=== PATIENT | female | born 1945 | race Two or more races ===

== ENCOUNTER 2016-11-07 01:25 | Inpatient (IN) | payer MEDICARE, OTHER ==
[~2016-11-07] VITALS: Ht 144.8 cm; Wt 39.0 kg
--- NOTE | 2016-11-07 01:30 | NUR ---
PT [facility] FROM [facility], PLACED ON 5150 HOLD FOR AGGRESIVE BEHAVIOR TO STAFF WITH THREATS. PT DENIES HI/ SI AT THIS TIME. PT AOX4 RR EVEN AND UNLABORED. NO SOB NOTED. NAD NOTED. NO NVD AT THIS TIME. PT NOT DIAPHORETIC. PT PLACED ON MONITOR WAITING FOR MD MICHELLE. PT NOTED CALM AND COMPLIANT.
--- NOTE | 2016-11-07 01:36 | NUR ---
URINE COLLECTED. LAB AT BEDSIDE FOR BLOOD DRAW
[2016-11-07 01:49] LABS: BASOPHILS % (AUTO) 0.3 % (0.0-2.0); EOSINOPHILS # (AUTO) 0.2 /CMM (0.0-0.7); EOSINOPHILS % (AUTO) 3.2 % (0.0-6.0); HEMATOCRIT 40 % (33-45); HEMOGLOBIN 12.8 g/dL (11.5-14.8); LYMPHOCYTES # (AUTO) 1.3 /CMM (0.8-4.8); LYMPHOCYTES % (AUTO) 20.4 % (20.0-44.0); MEAN CORPUSCULAR HEMOGLOBIN 26 PG (26.0-33.0); MEAN CORPUSCULAR HGB CONC 32 g/dl (31.0-36.0); MEAN CORPUSCULAR VOLUME 81 fL (82-100); MONOCYTES # (AUTO) 0.5 /CMM (0.1-1.30); MONOCYTES % (AUTO) 7.5 % (2.0-12.0); NEUTROPHILS # (AUTO) 4.5 /CMM (1.8-8.9); NEUTROPHILS % (AUTO) 68.6 % (43.0-81.0); PLATELET COUNT (AUTO) 220 /CMM (150-450); RDW COEFFICIENT OF VARIATION 15.1 (11.5-15.0); RED BLOOD CELL COUNT(AUTO) 4.85 MIL/uL (4.0-5.2); WHITE BLOOD COUNT (AUTO) 6.5 K/uL (4.3-11.0)
[2016-11-07 01:57] LABS: BILIRUBIN,URINE NEGATIVE (NEGATIVE); BLOOD, URINE NEGATIVE Ery/uL (NEGATIVE); COLOR,URINE YELLOW (YELLOW); KETONES,URINE NEGATIVE (NEGATIVE); LEUKOCYTE ESTERASE ,URINE NEGATIVE (NEGATIVE); NITRITE, URINE NEGATIVE (NEGATIVE); PROTEIN,URINE NEGATIVE (NEGATIVE); UGLUCOSE NEGATIVE (NEGATIVE); UROBILINOGEN,URINE 0.2 EU/dL (0.2)
[2016-11-07 01:58] LABS: CANNABINOID, URINE NEGATIVE (NEGATIVE); PHENCYCLIDINE SCREEN,URINE NEGATIVE (NEGATIVE)
[2016-11-07 01:59] LABS: CALCIUM, SERUM 8.9 mg/dL (8.5-10.1); CARBON DIOXIDE 31 mmol/L (21-32); CHLORIDE 108 mmol/L (98-107); CREATININE 0.8 mg/dL (0.6-1.3); GLUCOSE 82 mg/dL (74-106); POTASSIUM 4.1 mmol/L (3.5-5.1); SODIUM SERUM 143 mmol/L (136-145); UREA NITROGEN, BLOOD 22 mg/dL (7-18)
[2016-11-07 02:01] LABS: APPEARANCE,URINE CLEAR (CLEAR)
[2016-11-07 02:04] LABS: ALANINE AMINOTRANSFERASE 25 U/L (12-78); ALBUMIN 3.6 g/dL (3.4-5.0); ALCOHOL, BLOOD < 3 mg/dL (0-0); ALKALINE PHOSPHATASE 86 U/L (46-116); ASPARTATE AMINOTRANSFERASE 20 U/L (15-37); BILIRUBIN,TOTAL 0.2 mg/dL (0.2-1.0); TOTAL PROTEIN, SERUM 7.3 g/dL (6.4-8.2)
[2016-11-07 02:05] LABS: ACETAMINOPHEN 0 ug/ml (10-30); SALICYLATE 1.3 mg/dL (2.8-20.0)
--- NOTE | 2016-11-07 02:39 | NUR ---
PT TRANSFERED VIA [facility] TO [facility].
[2016-11-07 03:00] VITALS: BP 147/76
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
[2016-11-07] MEDS ORDERED: MAG HYDROX/AL HYDROX/SIMETH 30 ML UDC PO PRN (03:30)
[2016-11-07] MEDS ORDERED: ACETAMINOPHEN 325 MG TABLET PO PRN (03:30)
[2016-11-07] MEDS ORDERED: LORAZEPAM 0.5 MG TABLET PO PRN (03:30)
[2016-11-07] MEDS ORDERED: MAGNESIUM HYDROXIDE 30 ML UDC PO PRN (03:30)
[2016-11-07] MEDS ORDERED: AMLO5TAB2 PO (04:48)
[2016-11-07] MEDS ORDERED: IBUP-1481 PO (04:49)
--- NOTE | 2016-11-07 06:37 | NUR ---
GPS RN NOTE, PATIENT NEEDS A MEDICATION RECONCILIATION. PAGED [facility] AND INFORMED DR SORENSEN OF MY FINDINGS. DR SORENSEN STATED THAT SHE WOULD LOOK INTO IT. WILL CONTINUE TO MONITOR THIS PATIENT.
[2016-11-07 07:37] LABS: CREATININE 0.7 mg/dL (0.6-1.3)
[2016-11-07 08:00] VITALS: BP 143/77
--- NOTE | 2016-11-07 09:30 | NUR ---
WOUND CARE CONSULT: PATIENT SEEN AND SKIN ASSESSMENT DONE. PATIENT ALERT, AMBULATORY, INDEPENDENT WITH BED MOBILITY, CONTINENT, CARRI 22. SEE TODAY'S SKIN ASSESSMENT IN PCS ALONG WITH RECOMMENDATIONS DISCUSSED WITH NURSING STAFF. RECOMMEND MOISTURE PROTECTION WITH Z GUARD PRN ORDERED. MD IN AGREEMENT WITH PLAN OF CARE. Addendum: 11/07/16 at 0932 by SHIRLEY BREWER WNDNU Amended: Links added.
[2016-11-07] MEDS ORDERED: Z GUARD REMEDY 2 OZ OINT TP PRN (10:00)
[2016-11-07] MEDS ORDERED: IBUPROFEN 400 MG TABLET PO PRN (11:00)
[2016-11-07] MEDS: NEOMY SULF/BACITRAC ZN/POLY 15 GM TUBE TP SCH (11:01)
[2016-11-07] MEDS: DIVALPROEX SODIUM 250 MG TABLET.DR PO SCH ×2 (15:30→21:56)
[2016-11-07 16:00] VITALS: BP 119/75
[2016-11-07] MEDS: QUETIAPINE FUMARATE 25 MG TABLET PO SCH (16:10)
[2016-11-07 20:00] VITALS: BP 106/66
[2016-11-07] MEDS: TEMAZEPAM 7.5 MG CAPSULE PO PRN (21:57)
[2016-11-08] MEDS: DIVALPROEX SODIUM 250 MG TABLET.DR PO SCH ×2 (08:22→21:06)
[2016-11-08] MEDS: AMLODIPINE BESYLATE 5 MG TABLET PO SCH (08:22)
[2016-11-08] MEDS: QUETIAPINE FUMARATE 25 MG TABLET PO SCH ×2 (08:22→16:10)
[2016-11-08] MEDS: NEOMY SULF/BACITRAC ZN/POLY 15 GM TUBE TP SCH (08:25)
[2016-11-08 09:04] VITALS: BP 160/85
--- NOTE | 2016-11-08 13:42 | NUR ---
Initial discharge plan: Pt. is from a board and care located at [address] [place] [address] [address] was referred to [facility] in [place] [address] [facility] [address] fax [phone]. GABRIELLA spoke with Ana Lilia from the facility [phone] who requested paperwork to be faxed once pt. is ready for discharge. She will speak with her senior systems administrator to see if transfer can be arranged. GABRIELLA will follow up with MD and will arrange for safe and proper discharge.
[2016-11-08 16:00] VITALS: BP 122/74
[2016-11-08 20:00] VITALS: BP 133/72
[2016-11-08] MEDS: TEMAZEPAM 7.5 MG CAPSULE PO PRN (22:19)
[2016-11-09 07:01] LABS: CALCIUM, SERUM 8.5 mg/dL (8.5-10.1); CREATININE 0.8 mg/dL (0.6-1.3); POTASSIUM 4.4 mmol/L (3.5-5.1)
[2016-11-09 08:23] VITALS: BP 138/82
[2016-11-09] MEDS: AMLODIPINE BESYLATE 5 MG TABLET PO SCH (08:35)
[2016-11-09] MEDS: DIVALPROEX SODIUM 250 MG TABLET.DR PO SCH ×2 (08:35→21:20)
[2016-11-09] MEDS: NEOMY SULF/BACITRAC ZN/POLY 15 GM TUBE TP SCH (08:36)
[2016-11-09] MEDS: QUETIAPINE FUMARATE 25 MG TABLET PO SCH ×2 (08:36→16:54)
[2016-11-09 15:59] VITALS: BP 108/73
[2016-11-09 20:00] VITALS: BP 104/67
[2016-11-10 08:00] VITALS: BP 113/74
[2016-11-10 08:19] LABS: BASOPHILS % (AUTO) 0.5 % (0.0-2.0); EOSINOPHILS # (AUTO) 0.2 /CMM (0.0-0.7); EOSINOPHILS % (AUTO) 4.8 % (0.0-6.0); HEMATOCRIT 43 % (33-45); HEMOGLOBIN 13.8 g/dL (11.5-14.8); LYMPHOCYTES # (AUTO) 1.2 /CMM (0.8-4.8); LYMPHOCYTES % (AUTO) 23.8 % (20.0-44.0); MEAN CORPUSCULAR HEMOGLOBIN 26 PG (26.0-33.0); MEAN CORPUSCULAR HGB CONC 32 g/dl (31.0-36.0); MEAN CORPUSCULAR VOLUME 81 fL (82-100); MONOCYTES # (AUTO) 0.4 /CMM (0.1-1.30); MONOCYTES % (AUTO) 8.6 % (2.0-12.0); NEUTROPHILS # (AUTO) 3.2 /CMM (1.8-8.9); NEUTROPHILS % (AUTO) 62.3 % (43.0-81.0); PLATELET COUNT (AUTO) 239 /CMM (150-450); RDW COEFFICIENT OF VARIATION 15.1 (11.5-15.0); RED BLOOD CELL COUNT(AUTO) 5.25 MIL/uL (4.0-5.2); WHITE BLOOD COUNT (AUTO) 5.1 K/uL (4.3-11.0)
[2016-11-10 08:35] LABS: ALBUMIN 3.6 g/dL (3.4-5.0); CALCIUM, SERUM 9.1 mg/dL (8.5-10.1); CREATININE 0.8 mg/dL (0.6-1.3); POTASSIUM 4.4 mmol/L (3.5-5.1); TOTAL PROTEIN, SERUM 7.4 g/dL (6.4-8.2)
[2016-11-10 08:51] LABS: BILIRUBIN,TOTAL 0.2 mg/dL (0.2-1.0)
[2016-11-10] MEDS: DIVALPROEX SODIUM 250 MG TABLET.DR PO SCH ×3 (08:56→16:38)
[2016-11-10] MEDS: QUETIAPINE FUMARATE 25 MG TABLET PO SCH ×2 (08:56→16:38)
[2016-11-10] MEDS: AMLODIPINE BESYLATE 5 MG TABLET PO SCH (08:56)
[2016-11-10] MEDS: NEOMY SULF/BACITRAC ZN/POLY 15 GM TUBE TP SCH (09:11)
[2016-11-10 15:49] VITALS: BP 119/69
[2016-11-10 19:56] VITALS: BP 136/60
[2016-11-10] MEDS ORDERED: DIVALPROEX SODIUM 250 MG TABLET.DR PO SCH (21:00)
[2016-11-11 08:00] VITALS: BP 137/70
[2016-11-11] MEDS: QUETIAPINE FUMARATE 25 MG TABLET PO SCH ×2 (08:21→16:47)
[2016-11-11] MEDS: AMLODIPINE BESYLATE 5 MG TABLET PO SCH (08:21)
[2016-11-11] MEDS: DIVALPROEX SODIUM 250 MG TABLET.DR PO SCH ×3 (08:21→16:47)
[2016-11-11] MEDS: NEOMY SULF/BACITRAC ZN/POLY 15 GM TUBE TP SCH (08:22)
[2016-11-11 16:00] VITALS: BP 100/59
[2016-11-11 19:43] VITALS: BP 128/66
[2016-11-12 07:57] LABS: CALCIUM, SERUM 8.7 mg/dL (8.5-10.1); CREATININE 0.9 mg/dL (0.6-1.3); POTASSIUM 4.3 mmol/L (3.5-5.1)
[2016-11-12 08:00] VITALS: BP 115/77
[2016-11-12] MEDS: DIVALPROEX SODIUM 250 MG TABLET.DR PO SCH ×3 (08:10→16:58)
[2016-11-12] MEDS: QUETIAPINE FUMARATE 25 MG TABLET PO SCH ×2 (08:10→16:58)
[2016-11-12] MEDS: AMLODIPINE BESYLATE 5 MG TABLET PO SCH (08:11)
[2016-11-12] MEDS: NEOMY SULF/BACITRAC ZN/POLY 15 GM TUBE TP SCH (09:06)
[2016-11-12 15:34] VITALS: BP 116/69
[2016-11-12 20:21] VITALS: BP 111/57
[2016-11-13 08:00] VITALS: BP 117/55
[2016-11-13] MEDS: AMLODIPINE BESYLATE 5 MG TABLET PO SCH (08:11)
[2016-11-13] MEDS: QUETIAPINE FUMARATE 25 MG TABLET PO SCH ×2 (08:12→16:30)
[2016-11-13] MEDS: DIVALPROEX SODIUM 250 MG TABLET.DR PO SCH ×3 (08:12→16:29)
[2016-11-13] MEDS: NEOMY SULF/BACITRAC ZN/POLY 15 GM TUBE TP SCH (08:15)
[2016-11-13 16:00] VITALS: BP 120/76
[2016-11-13 20:52] VITALS: BP 144/78
[2016-11-14 08:19] VITALS: BP 119/64
[2016-11-14] MEDS: DIVALPROEX SODIUM 250 MG TABLET.DR PO SCH ×3 (08:40→17:04)
[2016-11-14] MEDS: AMLODIPINE BESYLATE 5 MG TABLET PO SCH (08:40)
[2016-11-14] MEDS: QUETIAPINE FUMARATE 25 MG TABLET PO SCH ×2 (08:40→17:04)
[2016-11-14] MEDS: NEOMY SULF/BACITRAC ZN/POLY 15 GM TUBE TP SCH (08:41)
--- NOTE | 2016-11-14 12:25 | NUR ---
GABRIELLA left a voicemail for Della from the facility [phone] [facility] in [place] [address] [facility] [address] fax [phone] confirming discharge tomorrow.
[2016-11-14 15:52] VITALS: BP 102/68
[2016-11-14 20:00] VITALS: BP 121/78
[2016-11-14] MEDS: TEMAZEPAM 7.5 MG CAPSULE PO PRN (22:19)
[2016-11-15] MEDS: AMLODIPINE BESYLATE 5 MG TABLET PO SCH (08:09)
[2016-11-15] MEDS: QUETIAPINE FUMARATE 25 MG TABLET PO SCH (08:09)
[2016-11-15 08:10] VITALS: BP 107/66
[2016-11-15] MEDS: DIVALPROEX SODIUM 250 MG TABLET.DR PO SCH ×2 (08:10→12:41)
[2016-11-15] MEDS: NEOMY SULF/BACITRAC ZN/POLY 15 GM TUBE TP SCH (08:13)
--- NOTE | 2016-11-15 13:39 | NUR ---
PT D/C TO [facility] PER MD ORDERS IN STABLE CONDITION, DENIES SI/HI/ . SKIN CLEAR. PT. LEFT WITH ALL BELONGINGS MED RECONCILED , THE COPY OF THE CURRENT MED LIST ATTACHED WITH PAPER WORK. EXIT CARE DONE REPORT GIVEN TO THE [facility]. PT. [facility] WITH [facility].
== END 2016-11-15 13:30 | DRG 885 ==
LOC: ER 01:29 → GPS 03:08
PROVIDERS: ADMIT Psychiatry & Neurology Psychiatry; ATTEND Family Medicine
DX: F29 Unspecified psychosis not due to a substance or known physiological condition (principal); F39 Unspecified mood [affective] disorder; I10 Essential (primary) hypertension; R79.89 Other specified abnormal findings of blood chemistry; F03.90 Unspecified dementia, unspecified severity, without behavioral disturbance, psychotic disturbance, mood disturbance, and anxiety
CPT/HCPCS: 36415; 80048-TC; 80053-TC; 80061-TC; 80076-TC; 80164-TC; 80305; 81000-TC; 82565-TC; 85025-TC; 87081-TC; A4606; G0480; G6039-TC; Z7610